=== PATIENT | male | born 1955 | race Caucasian/White ===

== ENCOUNTER → 2020-01-01 08:28 | Outpatient (CLI) | payer BC, SELFPAY ==
[2020-01-01 11:43] LABS: Coronavirus 19 IgG Antibody Negative (Negative); Coronavirus 19 IgM Antibody Negative (Negative)
== END ==
PROVIDERS: Visit Provider Internal Medicine Gastroenterology
DX: Z01.818 Encounter for other preprocedural examination (principal)
CPT/HCPCS: 36415; 86328

== ENCOUNTER 2020-01-04 10:09 | Day surgery (SDC) | payer BC, SELFPAY ==
[2019-12-30 08:23] VITALS: BMI 25.9
[2020-01-04] VITALS (7 sets, daily range): BP systolic 105–178; BP diastolic 62–101; PULSE 67–77; RESP 16–18; TEMP 36.2–36.7; O2SAT 97–100
--- NOTE | 2020-01-04 12:47 | HMH.PROC ---
[facility] Procedure Note Procedure Note:: Colonoscopy Procedure Report: Colonoscopy with cold snare polypectomy Endoscopist: Tarik Narayanan II, MD Referring physician: Samia Deshpande MD Date of Procedure: January 04, 2020 Equipment: Olympus 180 variable stiffness pediatric colonoscope Sedation: MAC sedation Indication: Mr. Cornell is a 64-year-old gentleman who is here for follow-up high risk screening/surveillance colonoscopy. The patient does have a personal history and family history of colon cancer. He had a rectosigmoid colon cancer (stage IIa) and underwent surgery with low anterior resection and December 2009. The patient also states that his brother had colon cancer at the age of 68. Unfortunately, the patient has had colonoscopies which have been marred by poor preparation. The patient does have a bowel movement every 3 to 4 days. His colonoscopy in February 2016 was normal. His attempted colonoscopies in March 2019 and again in July 2019 were unprepped. The patient reports no abdominal pain, weight loss, change in his bowel habits or rectal bleeding. Procedure: Prior to the procedure, a history and physical exam was performed, and patient's medications and allergies were reviewed. The risks, benefits and alternatives of the sedation and procedure were discussed with the patient. All questions were answered and informed consent was obtained. The patient was brought to the procedure room. Patient identification and proposed procedure were verified by the physician and the nurse. The patient was placed in a left lateral decubitus position and the scope was passed under direct vision. Throughout the procedure, the patient's blood pressure, pulse, and oxygen saturations were monitored continuously. The colonoscopy was accomplished without difficulty. The patient tolerated the procedure well. Findings: On digital rectal examination there was normal rectal tone. There were no external hemorrhoids. The colonoscope was introduced through the anal canal to the rectum and advanced to the cecum. The ileocecal valve and appendiceal orifice were identified. The scope was advanced a short distance into the ileum which appeared grossly normal. The scope was then withdrawn into the colon. The cecum, ascending and transverse colon and mucosa were grossly normal except for redundancy and moderate melanosis coli. There was a diminutive 3 mm polyp in the descending colon removed via cold snare polypectomy. There were scattered diverticuli throughout the descending and remaining sigmoid colon (LEFT colon). There was evidence of prior low anterior resection with normal anastomosis. The rectum itself was normal. Upon retroflexion within the rectum there were grade 1-2 internal hemorrhoids. The preparation was fair to good throughout with Maybee Preparation Score of 7 out of 9. The cecal time was 14 minutes. Impression: 1. Diminutive descending polyp 2. Melanosis coli with colonic redundancy 3. Left-sided diverticulosis with evidence of prior low anterior resection 4. Grade 1-2 internal hemorrhoids Plan: I will follow-up the polyp histology and recommend repeat screening/surveillance colonoscopy again in 3 to 5 years based upon his personal and family history. I would consider addition of Linzess on a regular and daily basis to improve bowel function and bowel control and avoidance of senna based natural stimulant laxatives.
--- NOTE | 2020-01-04 13:15 | HMH.ANESCL ---
[facility] Anesthesia Checklist - Structural Data Admitted From: Home Planned Operative Procedure/s: colonoscopy Consent for Planned Operative Procedure(s) Verified: Yes - Airway Assessment C-Spine Mobility Assessed: Yes TMJ Mobility Assessed: Yes Dentition: Good Dentition - Neurological Assessment Level of Consciousness: Awake, Alert, Appropriate - Anesthesia Plan Anesthesia Risk discussed: Yes Anesthesia Plan: Verified ASA Class: II Anesthesia Type: MAC [facility] History I have reviewed the patient's past medical history: Yes Medical History: Reports:: Cancer (stage 2 colon CA 2011), Hyperlipidemia, Hypertension Denies:: Diabetes Mellitus Type 1, Diabetes Mellitus Type 2, Internal Pacemaker, MRSA, Seizures *Have you ever received a pneumonia vaccine?: No *Have you received a flu vaccine this season?: Yes Anesthesia experience/problems:: none Other Surgeries: No: Pacemaker Amputation: No Fractures: No - *Social History Alcohol Intake: current Alcohol Intake Frequency:: holidays/special occasions only Substance Use Type: denies use *Occupational Status:: employed *Travel in the last 8 weeks: None Family Hx:: No significant family history
== END 2020-01-04 13:40 | disposition home or self-care (01) ==
LOC: OUTP 10:11
PROVIDERS: PCP Family Medicine; Visit Provider Internal Medicine Gastroenterology
PROC: 0DJD8ZZ Inspection of Lower Intestinal Tract, Via Natural or Artificial Opening Endoscopic (ICD-10-PCS; CPT 45378; principal; 2020-01-04 11:30)
DX: Z12.11 Encounter for screening for malignant neoplasm of colon (principal); K63.5 Polyp of colon; K57.30 Diverticulosis of large intestine without perforation or abscess without bleeding; K64.0 First degree hemorrhoids; Q43.4 Duplication of intestine; K63.89 Other specified diseases of intestine; Z85.038 Personal history of other malignant neoplasm of large intestine; Z90.49 Acquired absence of other specified parts of digestive tract; Z80.0 Family history of malignant neoplasm of digestive organs; Z72.0 Tobacco use; E78.5 Hyperlipidemia, unspecified; I10 Essential (primary) hypertension
CPT/HCPCS: 45385

== ENCOUNTER → 2021-03-06 08:05 | Outpatient (POV) | payer BC, SELFPAY | PROVIDERS: Visit Provider Nurse Practitioner Family | DX: Z00.00 Encounter for general adult medical examination without abnormal findings (principal) ==